=== PATIENT | male | born 1950 | race Asian ===

== ENCOUNTER 2018-06-16 15:07 | Emergency (ER) | payer MEDICARE, OTHER, SELFPAY ==
[2018-06-16 15:15] VITALS: BP 152/90; PULSE 76; RESP 13; TEMP 36.4; O2SAT 100
--- NOTE | 2018-06-16 15:32 | ED_ITS ---
HPI - General Adult General Chief complaint: Eye Problems Stated complaint: RIGHT EYE SEEING FLASHES OF LIGHT Time Seen by Provider: 06/16/18 15:20 Source: patient Mode of arrival: ambulatory Limitations: no limitations History of Present Illness HPI narrative: Patient is a 67-year-old male without prior history of eye surgeries wears reading glasses does not were contacts here for evaluation of 1- 2 days of seeing flashes in his right eye with floaters. No eye pain. No loss of vision. No foreign body sensation. No headache. No trauma. Has never had anything like this before. He states that he sees cobwebs like visions when he looks to the right just in his right eye. No blurry vision or double vision. Review of Systems Constitutional Denies fever(s), Denies frequent falls and Denies headache(s) Eyes Denies eye pain Comments: Floaters and flashes of light in his right eye ENT Ears, Nose, Mouth, and Throat: Denies vertigo, Denies dizziness, Denies facial pain, Denies headache(s) and Denies disequilibrium Cardiovascular Denies chest pain, Denies palpitations and Denies dyspnea Respiratory Denies cough and Denies dyspnea Gastrointestinal Gastrointestinal: Denies nausea and Denies vomiting Musculoskeletal Denies numbness Neurologic Denies vertigo, Denies dizziness, Denies frequent falls, Denies headache(s), Denies numbness and Denies disequilibrium Endocrine Denies palpitations PFSH Medical History Healthy adult (Acute) Surgical History No pertinent past surgical history (Acute) Social History marital status: lives independently: Yes Social History marital status: lives independently: Yes Exam Initial Vital Signs Initial Vital Signs: Vital Signs Temperature 97.5 F L 06/16/18 15:15 Pulse Rate 76 06/16/18 15:15 Respiratory Rate 13 06/16/18 15:15 Blood Pressure 152/90 H 06/16/18 15:15 Pulse Oximetry 100 06/16/18 15:15 Const General: cooperative, healthy appearing, comfortable, well developed, well groomed and No acute distress Orientation: alert, awake and oriented x3 HENMT Head: normal to inspection, normocephalic and atraumatic Ears: TM's normal bilaterally Nose: external nose normal Face and sinus: normal facial exam Mouth: oral mucosae normal Eyes Pupils: PERRL EOM: EOM intact bilaterally Direct ophthalmoscopy: normal light reflex Other: Intra-ocular pressure right eye 19 interocular pressure left eye 20 Neck Lymphatic: No lymphadenopathy Resp Effort & Inspection: normal respiratory effort Auscultation: clear to auscultation bilaterally Cardio Rate: regular rate Rhythm: regular rhythm Skin Lesions: no lesions Rashes: no rashes Neuro General: alert, awake and oriented x3 Extrem General: normal to inspection and capillary refill normal Psych Appearance: grossly normal and well kempt Course Vital Signs - 8 hr 06/16/18 15:15 Temperature 97.5 F L Pulse Rate 76 Respiratory Rate 13 Blood Pressure 152/90 H Pulse Oximetry 100 Medical Decision Making MDM Narrative Medical decision making narrative: Patient has a unremarkable visual acuity. Interocular pressures unremarkable. Has no tenderness to palpation of the temporal artery on the right. Has a normal ocular exam otherwise. I suspect vitreous detachment given his presentation. Will hold on further workup for now. Patient was given follow-up instructions with regard Ophthalmology. He is given return precautions. He expressed understanding and agreement with plan. Discharge Plan Departure Patient Disposition: Home Clinical Impression: PVD (posterior vitreous detachment), right eye Discharge Date/Time: 06/16/18 16:20 Interventions: ED Discharge Assessment Last Done: 06/16/18 16:20 Instructions: DI for Vitreous Detachment Activity Restrictions/Additional Instructions: Continue all of your medications as directed. On Monday I would give the ophthalmology department here at [facility] call. Their phone number is [phone]. Return to the emergency department for any new or worsening symptoms specifically if you are having any vision loss in your right eye.
== END 2018-06-16 16:20 | disposition home or self-care (01) ==
PROVIDERS: Emergency Provider Emergency Medicine
DX: H43.811 Vitreous degeneration, right eye (principal)
CPT/HCPCS: 99283